=== PATIENT | male | born 1960 | race Caucasian/White ===

== ENCOUNTER 2016-09-24 21:20 | Emergency (ER) | payer MEDICAID ==
[2016-09-24] MEDS ORDERED: Oxycodone/Acetaminophen 5/325 mg Tab PO STA (21:39)
--- NOTE | 2016-09-24 21:42 | C.PDOC ---
History Of Present Illness 56 yo male w/PMHx of lower back pain, come in for evaluation of Right sided lower back pain exacerbation for past 2 weeks. Pt reports, pain is localized, Right lower back, non-radiating, worse with movement, sitting. 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 Pt admits, similar sx in past. Pt denies fever, chills, known recent trauma or injury, abd. pain, N/V, UTi sx, saddle anesthesia, incontinence, denies weakness, sensory or vascular deficits to B/L LEs. Ambulate to ED for evaluation, not in any apparent distress. Time Seen by Provider: 09/24/16 21:34 Chief Complaint (Nursing): Back Pain History Per: Patient Onset/Duration Of Symptoms: Intermittent Episodes, Gradual Quality Of Discomfort: Dull, Aching Severity: Moderate Previous Symptoms: Back Pain Associated Symptoms: None Exacerbating Factor(s): Movement, Sitting Past Medical History Reviewed: Historical Data, Nursing Documentation, Vital Signs Vital Signs: Last Vital Signs Temp 98 F 09/24/16 21:29 Pulse 80 09/24/16 21:29 Resp 14 09/24/16 21:29 BP 130/80 09/24/16 21:29 Pulse Ox 98 09/24/16 21:42 - Medical History PMH: Chronic Pain Family History: States: No Known Family Hx - Social History Hx Alcohol Use: No Hx Substance Use: No - Immunization History Hx Tetanus Toxoid Vaccination: No Hx Influenza Vaccination: No Hx Pneumococcal Vaccination: No Review Of Systems Except As Marked, All Systems Reviewed And Found Negative. Constitutional: Negative for: Fever, Chills ENT: Negative for: Throat Pain Cardiovascular: Negative for: Chest Pain Gastrointestinal: Negative for: Nausea, Vomiting, Abdominal Pain, Diarrhea Genitourinary: Negative for: Dysuria, Frequency, Incontinence Musculoskeletal: Positive for: Back Pain Skin: Negative for: Rash Neurological: Negative for: Weakness, Numbness Physical Exam - Physical Exam Appears: Well, Non-toxic, No Acute Distress Skin: Normal Color, Warm, Dry, No Ecchymosis Eye(s): bilateral: PERRL Oral Mucosa: Moist, No Drooling Throat: Normal, No Erythema, No Exudate, No Drooling Neck: Supple Gastrointestinal/Abdominal: Soft, No Tenderness, No Distention, No Guarding Back: No CVA Tenderness, No Vertebral Tenderness, Decreased ROM (of L-spine due to pain), Muscle Spasm (Right paraspinal lumbar), Paraspinal Tenderness (Right) Extremity: No Pedal Edema, No Deformity Neurological/Psych: Oriented x3, Normal Speech, Normal Cognition, Normal Motor, Normal Sensation, Normal Reflexes ED Course And Treatment O2 Sat by Pulse Oximetry: 98 Progress Note: On re-evaluation, pt is afebrile, hemodynamiclay stable. Non- toxic. Ambulatory in ED with stable gait. ENT: no acute findings. neck:(-) meningeal sign. Abd: benign. Neurologicaly intact. UA results review and appears normal. Pt has cinical finidngs c/w chronic lower back pain with acute exacerbation. Pt was advised on course of ds. ref. to f/u with PMD in 2-3 days for re-eavl. Return if any worsening or new changes. Disposition Counseled Patient/Family Regarding: Studies Performed, Diagnosis, Need For Followup, Rx Given - Disposition Referrals: [facility] [Outside] Disposition: HOME/ ROUTINE Disposition Time: 22:26 Condition: STABLE Additional Instructions: Light duty to lower back, avoid heavy lifting, bending, etc. Take medication as prescribed Follow up with PMD in 2-3 days for re-evaluation. Return to ED if any worsening or new changes. Prescriptions: Ibuprofen [Motrin Tab] 600 mg PO Q6 #20 tab Methocarbamol [Robaxin] 500 mg PO TID #14 tab traMADol [Ultram] 50 mg PO TID #7 tab Instructions: Chronic Back Pain (ED) - Clinical Impression Clinical Impression: Lower back pain
[2016-09-24] MEDS ORDERED: Oxycodone/Acetaminophen 5/325 mg Tab ONE (21:45)
[2016-09-24 22:21] LABS: RBC URINE 3 /hpf (0-3); URINE BILIRUBIN NEGATIVE (NEGATIVE); URINE BLOOD NEGATIVE (NEGATIVE); URINE COLOR Yellow (YELLOW); URINE GLUCOSE (UA) NORMAL (Normal); URINE KETONE TRACE mg/dL (NEGATIVE); URINE LEUKOCYTE ESTERASE NEG Leu/uL (Negative); URINE PROTEIN NEGATIVE (NEGATIVE); URINE UROBILINOGEN NORMAL mg/dL (0.2-1.0); WBC URINE 1 /hpf (0-5)
[2016-09-24 22:39] VITALS: BP 136/79; PULSE 86; RESP 20; TEMP 98.2
[2016-09-24 22:40] VITALS: O2SAT 98
== END 2016-09-24 22:39 | disposition home or self-care (01) ==
LOC: C.ER 21:20
DX: M54.5 Low back pain (principal)

== ENCOUNTER 2016-10-01 21:42 | Emergency (ER) | payer MEDICAID ==
[2016-10-01 22:04] VITALS: BP 155/81; PULSE 95; RESP 18; TEMP 98.2; O2SAT 98
--- NOTE | 2016-10-01 22:38 | C.PDOC ---
History Of Present Illness Pt with h/oo of chronic back pain presents to ER with c/o of persisting low back pain x 1 week. Pt was seen in ER on 09/24/16 for same and states medications are no longer helping. Denies urinary or bowel incontinence, weakness, numbness of b/l extremities, recent trauma , UTI sx. pt has had not any follow up outpatiently Time Seen by Provider: 10/01/16 22:07 Chief Complaint (Nursing): Back Pain History Per: Patient History/Exam Limitations: no limitations Quality Of Discomfort: Unable To Describe Severity: Moderate Previous Symptoms: Back Pain, Chronic Pain Associated Symptoms: None. denies: Incontinence, New Weakness, New Numbness Past Medical History Vital Signs: Last Vital Signs Temp 98.2 F 10/01/16 22:00 Pulse 95 H 10/01/16 22:00 Resp 18 10/01/16 22:00 BP 155/81 H 10/01/16 22:00 Pulse Ox 98 10/01/16 22:38 - Medical History PMH: Chronic Pain Family History: States: Unknown Family Hx - Social History Hx Alcohol Use: No Hx Substance Use: No - Immunization History Hx Tetanus Toxoid Vaccination: No Hx Influenza Vaccination: No Hx Pneumococcal Vaccination: No Review Of Systems Constitutional: Negative for: Fever Gastrointestinal: Negative for: Abdominal Pain Genitourinary: Negative for: Dysuria, Hematuria Musculoskeletal: Positive for: Back Pain Neurological: Positive for: Weakness. Negative for: Numbness Physical Exam - Physical Exam Appears: Well, Non-toxic, No Acute Distress Skin: Normal Color Neck: Normal, Supple Chest: Symmetrical Respiratory: Normal Breath Sounds Gastrointestinal/Abdominal: Normal Exam, Soft, No Tenderness Back: No CVA Tenderness, No Vertebral Tenderness, Paraspinal Tenderness (right) , No Straight Leg Raising Extremity: Normal ROM, No Tenderness Extremity: Bilateral: Atraumatic, Normal Color And Temperature Neurological/Psych: Normal Motor, Normal Sensation Gait: Steady ED Course And Treatment O2 Sat by Pulse Oximetry: 98 Pulse Ox Interpretation: Normal Progress Note: Pt was given IM toradol with some [ain relief. Instructed follow up in clinic, and return precautions were discussed and understood by pt Reassessment Condition: Improved Disposition Counseled Patient/Family Regarding: Diagnosis, Need For Followup - Disposition Disposition: HOME/ ROUTINE Disposition Time: 22:36 Condition: STABLE Additional Instructions: Please continue meds except for motrin Take toradol PO instead with robaxin Follow up in clinic Return to ER if worse Prescriptions: Ketorolac Tromethamine [Toradol] 10 mg PO TID #20 tab Instructions: Chronic Back Pain (ED) - Clinical Impression Clinical Impression: Chronic back pain
== END 2016-10-01 22:38 | disposition home or self-care (01) ==
LOC: C.ER 21:42
DX: G89.29 Other chronic pain (principal); M54.5 Low back pain
CPT/HCPCS: 96372; 99283; J1885